=== PATIENT | female | born 1960 | race Caucasian/White ===

== ENCOUNTER 2019-01-14 16:14 | Outpatient (CLI) | payer OTHER ==
--- NOTE | 2019-01-14 17:13 | RAD ---
TWO VIEWS OF THE LEFT HIP 01/14/19 COMPARISON: None. HISTORY: Left hip pain. FINDINGS: Two views of the left hip shows no evidence of acute fracture or dislocation. No degenerative changes are seen. IMPRESSION: Unremarkable exam. POS: [facility]
--- NOTE | 2019-01-14 17:24 | RAD ---
Exam: Bilateral SI joints: HISTORY: Pain in SI joints and left hip pain FINDINGS: No evidence for acute fracture or dislocation. No evidence for periarticular bony erosive changes or significant abnormal sclerosis or ankylosis. IMPRESSION: Unremarkable bilateral SI joints.
== END 2019-01-14 16:15 | disposition home or self-care (01) ==
LOC: BICRAD 16:14
PROVIDERS: ATTEND Internal Medicine
DX: M25.552 Pain in left hip (principal); M53.3 Sacrococcygeal disorders, not elsewhere classified
CPT/HCPCS: 72202

== ENCOUNTER 2019-01-24 11:07 | Outpatient (CLI) | payer OTHER ==
--- NOTE | 2019-01-30 14:28 | MMO ---
Bilateral MAMMO Bilat Screen [facility]. CLINICAL HISTORY: Patient is 58 years old and is seen for screening. The patient has no family history of breast cancer. The patient has no personal history of cancer. The patient has a history of bilateral Breast reduction in 1998. VIEWS: The views performed were: bilateral craniocaudal with tomosynthesis and bilateral mediolateral oblique with tomosynthesis. FILMS COMPARED: The present examination has been compared to prior imaging studies performed at 09/07/2014, 09/20/2015 and 09/21/2016. MAMMOGRAM FINDINGS: There are scattered fibroglandular densities. There are stable benign appearing calcifications seen in both breasts. There are no suspicious masses, suspicious calcifications, or new areas of architectural distortion. IMPRESSION: THERE IS NO MAMMOGRAPHIC EVIDENCE OF MALIGNANCY. A ROUTINE FOLLOW-UP MAMMOGRAM IN 1 YEAR IS RECOMMENDED. THE RESULTS OF THIS EXAM WERE SENT TO THE PATIENT. ACR BI-RADS Category 2 - Benign finding MAMMOGRAPHY NOTE: 1. A negative mammogram report should not delay a biopsy if a dominant of clinically suspicious mass is present. 2. Approximately 10% to 15% of breast cancers are not detected by mammography. 3. Adenosis and dense breasts may obscure an underlying neoplasm.
== END 2019-01-24 11:08 | disposition home or self-care (01) ==
LOC: BICMAMMO 11:07
PROVIDERS: ATTEND Internal Medicine
DX: Z12.31 Encounter for screening mammogram for malignant neoplasm of breast (principal)
CPT/HCPCS: 77063; 77067

== ENCOUNTER 2019-01-27 08:06 | Outpatient (CLI) | payer OTHER ==
--- NOTE | 2019-01-27 10:06 | BD ---
DEXA SCAN: INDICATION: Osteoporosis screening. COMPARISON: None. FINDINGS: Lumbar Spine: BMD (g/cm2) L1 1.005 T-Score: 0.1 Z-Score: 1.3 L2 1.056 T-Score: 0.3 Z=Score: 1.5 L3 1.148 T-Score: 0.6 Z-Score: 0.9 L4 0.911 T-Score: -1.4 Z-Score: 0.0 L1-L4 1.032 T-Score: -0.1 Z-Score: 1.2 Right Hip Femoral Neck: 0.761 T-Score: -0.8 Z-Score: 0.4 Total Femur: 0.902 T-Score: -0.3 Z-Score: 0.5 Impression: Based on WHO criteria, the patient's bone mineral density is considered within normal limits. The pa tient is at low risk for fracture. POS: [facility]
== END 2019-01-27 08:07 | disposition home or self-care (01) ==
LOC: BICMAMMO 08:06
PROVIDERS: ATTEND Internal Medicine
DX: Z13.820 Encounter for screening for osteoporosis (principal)
CPT/HCPCS: 77080

== ENCOUNTER 2019-08-18 07:42 | Outpatient (CLI) | payer OTHER ==
--- NOTE | 2019-08-18 11:13 | ULT ---
HEPATIC ULTRASOUND WITH DOPPLER: Date: 08/18/19 HISTORY: Cirrhosis of the liver. FINDINGS: The liver has a coarse echogenicity with nodular borders consistent with cirrhosis. No focal mass or intrahepatic ductal dilatation is seen. No gallstones, gallbladder wall thickening, or pericholecysti c fluid identified. The common duct measures 3 mm in diameter. The spleen is enlarged, measuring 15.7 cm in length. The visualized portions of the pancreas are unremarkable. No free fluid is seen. There is normal and spectral waveforms in the hepatic, portal, and splenic vasculature. IMPRESSION: 1. Cirrhosis of the liver without focal mass. 2. Splenomegaly. POS: [facility]
== END 2019-08-18 07:43 | disposition home or self-care (01) ==
LOC: ULT 07:42
PROVIDERS: ATTEND Internal Medicine Gastroenterology
DX: K74.60 Unspecified cirrhosis of liver (principal); K76.0 Fatty (change of) liver, not elsewhere classified; K21.9 Gastro-esophageal reflux disease without esophagitis; E78.5 Hyperlipidemia, unspecified; R16.1 Splenomegaly, not elsewhere classified
CPT/HCPCS: 76705

== ENCOUNTER 2020-01-08 09:06 | Outpatient (CLI) | payer OTHER ==
--- NOTE | 2020-01-08 09:53 | MMO ---
Bilateral MAMMO Bilat Diag [facility]. CLINICAL HISTORY: Patient is 59 years old and is seen for diagnostic exam and lump or thickening in the right breast. The patient has no family history of breast cancer. The patient has no personal history of cancer. The patient has a history of bilateral Breast reduction in 1998. VIEWS: The views performed were: bilateral craniocaudal with tomosynthesis; bilateral mediolateral oblique with tomosynthesis; and bilateral mediolateral with tomosynthesis. FILMS COMPARED: The present examination has been compared to prior imaging studies performed at 01/24/2019 and 01/08/2020. This study has been interpreted with the assistance of computer-aided detection. MAMMOGRAM FINDINGS: There are scattered fibroglandular densities. There is a mass with circumscribed margins seen in the upper-inner region of the right breast. The mass was shown to be a cyst on ultrasound with a hyperechoic halo. On mammography, there appear to be areas of fat density within the mass. In the left breast, there are no suspicious masses, calcifications or areas of architectural distortion. IMPRESSION: MASS IN THE RIGHT BREAST IS PROBABLY BENIGN. FOLLOW-UP IN 3 MONTHS IS RECOMMENDED. THIS AREA LIKELY REPRESENT AN AREA OF RESORBING HEMATOMA AND FAT NECROSIS. THE RESULTS OF THIS EXAM WERE SENT TO THE PATIENT. ACR BI-RADS Category 3 - Probably benign finding - short interval follow-up suggested. [facility] will notify the patient of the need for additional imaging services. MAMMOGRAPHY NOTE: 1. A negative mammogram report should not delay a biopsy if a dominant of clinically suspicious mass is present. 2. Approximately 10% to 15% of breast cancers are not detected by mammography. 3. Adenosis and dense breasts may obscure an underlying neoplasm. Reported by: FILOMENA CHATMAN MD Electonically Signed: [id number]
--- NOTE | 2020-01-08 11:04 | ULT ---
RIGHT BREAST ULTRASOUND: Date: 01/08/2020 HISTORY: Tender palpable mass in right breast 2 o'clock position. COMPARISON: Mammograms 01/08/2020, 01/24/2019, and 11/30/2017. TECHNIQUE: Multiplanar Hodges scale and color Doppler images were obtained in a right breast ultrasound. FINDINGS: There is a hypoechoic fluid collection with a hyperechoic rim around the fluid collection. This measu res 1.7 cm in greatest dimension. No suspicious shadowing or mass is seen. IMPRESSION: There is a hypoechoic fluid collection. This may represent a resorbing hematoma. On mammography, ther e appears to be areas of fat within the lesion and this may represent hematoma within an area of fat necrosis. Patient denies trauma, but has a large dog that intermittently injures here. FINDINGS: BI-RADS Category 3 - Probably benign findings. A 3 month follow-up mammogram and ultrasound is recomm ended to ensure resolution. The facility will notify patient of need for additional imaging services.
== END 2020-01-08 09:07 | disposition home or self-care (01) ==
LOC: BICMAMMO 09:06
PROVIDERS: ATTEND Internal Medicine
DX: N63.12 Unspecified lump in the right breast, upper inner quadrant (principal)
CPT/HCPCS: 77066; G0279

== ENCOUNTER 2020-04-13 08:26 | Outpatient (CLI) | payer OTHER ==
--- NOTE | 2020-04-13 09:03 | MMO ---
Right Breast MAMMO Unilat Diag [facility]. CLINICAL HISTORY: Patient is 59 years old and is seen for diagnostic exam. The patient has no family history of breast cancer. The patient has no personal history of cancer. The patient has a history of bilateral Breast reduction in 1998. VIEWS: The views performed were: right craniocaudal with tomosynthesis; right mediolateral oblique with tomosynthesis; and right mediolateral with tomosynthesis. FILMS COMPARED: The present examination has been compared to prior imaging studies performed at [facility] on 01/24/2019, 01/08/2020 and 04/13/2020. This study has been interpreted with the assistance of computer-aided detection. MAMMOGRAM FINDINGS: There are scattered fibroglandular densities. The previously noted right breast mass has resolved. There are no suspicious masses, suspicious calcifications, or new areas of architectural distortion. IMPRESSION: THERE IS NO MAMMOGRAPHIC EVIDENCE OF MALIGNANCY. A ROUTINE FOLLOW-UP MAMMOGRAM IN 1 YEAR IS RECOMMENDED. THE RESULTS OF THIS EXAM WERE SENT TO THE PATIENT. ACR BI-RADS Category 2 - Benign finding MAMMOGRAPHY NOTE: 1. A negative mammogram report should not delay a biopsy if a dominant of clinically suspicious mass is present. 2. Approximately 10% to 15% of breast cancers are not detected by mammography. 3. Adenosis and dense breasts may obscure an underlying neoplasm. Reported by: EDMOND KEYS MD Electonically Signed: [id number]
--- NOTE | 2020-04-13 09:32 | ULT ---
LIMITED RIGHT BREAST ULTRASOUND: Date: 04/13/2020 HISTORY: Follow-up of right breast mass. FINDINGS: Comparison made with ultrasound of 01/08/2020. Correlation is made with mammogram from today and 06/2020. Sonographic evaluation of the 2 o'clock position of the right breast, 2.0 cm from the nipple, demonst rates interval resolution of the previously noted mass. IMPRESSION: BI-RADS Category 2 - Benign findings. Return to annual mammographic screening.
== END 2020-04-13 08:27 | disposition home or self-care (01) ==
LOC: BICMAMMO 08:26
PROVIDERS: ATTEND Internal Medicine
DX: N63.10 Unspecified lump in the right breast, unspecified quadrant (principal)
CPT/HCPCS: G0279

== ENCOUNTER 2020-10-13 08:36 | Outpatient (CLI) | payer OTHER ==
--- NOTE | 2020-10-13 09:43 | ULT ---
ULTRASOUND LIVER WITH ROSARIO SCALE AND COLOR FLOW AND SPECTRAL DOPPLER IMAGING: HISTORY: Cirrhosis of the liver without ascites. Fatty liver. Rectal bleeding. Gastroesophageal reflux dise ase without esophagitis. Personal history of colon polyps. COMPARISON: 08/18/2019. FINDINGS: The liver is enlarged measuring 21.2 cm in length with a coarse and increased echogenicity and irregu lar/nodular borders. No focal mass or abnormal biliary ductal dilatation is seen. The gallbladder, spleen, and pancreas appear normal. The gallbladder and pancreas appear normal. The spleen is enlar ged measuring 18.2 cm. No free fluid is noted. There is normal flow and spectral waveforms in the hepatic, portal, and splenic vasculature. IMPRESSION: 1. Hepatomegaly with fatty infiltration and probable cirrhosis. No hepatic mass. 2. Splenomegaly. POS: [facility]
== END 2020-10-13 08:37 | disposition home or self-care (01) ==
LOC: BICULT 08:36
PROVIDERS: ATTEND Internal Medicine Gastroenterology
DX: K21.9 Gastro-esophageal reflux disease without esophagitis (principal); K74.60 Unspecified cirrhosis of liver; K76.0 Fatty (change of) liver, not elsewhere classified; K62.5 Hemorrhage of anus and rectum; R16.2 Hepatomegaly with splenomegaly, not elsewhere classified; Z86.010 Personal history of colon polyps
CPT/HCPCS: 76705

== ENCOUNTER 2020-11-01 06:33 | Outpatient (CLI) | payer OTHER ==
[2020-11-01 16:19] LABS: SARS-CoV-2 PCR by NAA Not Detected (NotDetected)
== END 2020-11-01 06:34 | disposition home or self-care (01) ==
LOC: LABBT 06:33
PROVIDERS: ATTEND Internal Medicine Gastroenterology
DX: Z01.812 Encounter for preprocedural laboratory examination (principal); Z20.822 Contact with and (suspected) exposure to COVID-19
CPT/HCPCS: 87635; U0003; U0005

== ENCOUNTER 2020-11-04 11:51 | Day surgery (SDC) | payer OTHER ==
[2020-11-02 11:56] VITALS: BMI 29.1
[~2020-11-04 11:51] MED LIST: Lidocaine 1% PF 5 ML VIAL ONE; PROPOFOL 200 MG/20 ML VIAL ONE
[2020-11-04 15:16] LABS: Hemoglobin 10.9 g/dL (12.0-16.0); Mean Corpuscular HGB CONC 31.3 g/dL (32.0-36.0); Mean Corpuscular Hemoglobin 27.8 pg (27.0-31.0); Mean Corpuscular Volume 88.9 fL (78.0-98.0); Mean Platelet Volume 9.5 fL (7.4-10.4); Platelet Count 74 thou/uL (130-400); RBC Distribution Width 20.5 % (11.5-14.5); Red Blood Cell (RBC) Count 3.92 mill/uL (4.20-5.40); White Blood Cell (WBC) Count 4.2 thou/uL (4.8-10.8)
--- NOTE | 2020-11-04 20:44 | OP ---
DATE OF PROCEDURE: 11/04/2020 TITLE OF PROCEDURE: EGD with biopsy and variceal banding. PREPROCEDURE DIAGNOSES: 1. Cirrhosis. 2. History of esophageal varices. 3. History of portal gastropathy. POSTPROCEDURE DIAGNOSES: 1. Exam to 2nd portion of duodenum. 2. Three columns of grade 2 distal esophageal varices extending for a distance of approximately 11 cm in the lower esophagus. 3. Mild grade A distal esophagitis, not biopsied. 4. Small sliding hiatal hernia. 5. Numerous benign-appearing gastric polyps in the antrum, biopsied. 6. Changes of the entire stomach consistent with mild portal gastropathy. 7. Normal duodenum. 8. Status post successful banding of three columns of esophageal varices. PROCEDURE IN DETAIL: Written informed consent was obtained. The patient was brought to the endoscopy suite. Total intravenous anesthesia was administered by Dr. Beltrán and associates. The patient was placed in the left lateral decubitus position. A bite block was inserted into the mouth. A Pentax video diagnostic gastroscope was introduced into the oral cavity and the esophagus was carefully intubated. The gastroscope was advanced under direct visualization to the 2nd portion of the duodenum. Endoscopic findings revealed three columns of grade 2 distal esophageal varices extending for approximately 10 to 11 cm in the lower esophagus. Mild grade A distal esophagitis was identified associated with 1 cm sliding hiatal hernia. Examination of the stomach including a retroflexed view of the cardia and fundus revealed no gastric varices. However, a snake skin like appearance of the gastric mucosa was consistent with diagnosis of mild portal gastropathy. Multiple benign-appearing sessile polyps in a linear distribution were noted in the gastric antrum and biopsies were obtained for histology. Some acid hematin was associated with the gastric polyps, but there was no overt bleeding or ulceration. Examination of the duodenum from the bulb to the 2nd portion appeared normal. Using [employer] banding kit, 3 bands were placed on the 3 different columns of esophageal varices each about 1 cm apart along the length of the distal esophagus. There was no active bleeding at the conclusion of the banding, and the esophagus was completely decompressed as the endoscope was removed from the patient. She was repositioned for the sigmoidoscopy. There were no immediate complications. RECOMMENDATIONS: 1. Await biopsy results. 2. Ask the patient to call me in 1 week for biopsy results. 3. Resume previous medications. 4. Advise liquids and soft diet for the next 3 days. 5. Continue beta-barbara therapy. 6. Continue famotidine 40 mg at bedtime, may increase to 40 mg b.i.d. for the next 2 weeks. 7. Repeat EGD with variceal banding in about 6 weeks. Job ID: [id number]
--- NOTE | 2020-11-04 21:11 | OP ---
DATE OF PROCEDURE: 11/04/2020 TITLE OF PROCEDURE: Flexible sigmoidoscopy with biopsy. PRE PROCEDURE DIAGNOSES: 1. Recurrent hematochezia. 2. Known history of hemorrhoids. 3. History of adenomatous colon polyps with last colonoscopy 2018. 4. Cirrhosis. POST PROCEDURE DIAGNOSES: 1. Exam to mid to proximal sigmoid colon at 35 cm; suboptimal preparation. 2. Diminutive sigmoid polyp approximately 2 mm in diameter, excised with cold forceps. 3. Several hypertrophied anal papilla. 4. Nonbleeding small internal hemorrhoids. 5. Otherwise normal sigmoidoscopy. PROCEDURE IN DETAILS: Written informed consent was obtained. Upon completion of the EGD, the patient was repositioned for the sigmoidoscopy. A digital rectal exam was performed that was unremarkable. The Pentax video gastroscope was introduced into the anal canal and advanced under direct visualization to the mid to proximal sigmoid colon at 35 cm. The quality of the bowel preparation was suboptimal with a moderate amount of brown fecal liquid and some solid matter pooling in multiple areas of the colon. Using copious irrigation, most of the mucosa was rinsed away with resulting fair to good visualization. In the distal sigmoid colon, a 2 mm sessile polyp was identified and excised with cold biopsy forceps. No other synchronous polyps were identified. There is no evidence of colitis, ulcer or active bleeding. A retroflex exam in the rectum demonstrated several hypertrophied anal papilla and nonbleeding small internal hemorrhoids. There was no evidence of thrombosis. The rectum was decompressed as the endoscope was completely removed from the patient. She was transferred to the Day Stay Surgery area for postprocedure monitoring. There were no immediate complications. RECOMMENDATIONS: 1. Await biopsy results. 2. Anticipate repeating a colonoscopy in 2022 as previously planned. 3. Sitz baths for 5 to 10 minutes three times a day. 4. Analpram HC 2.5% cream t.i.d. per rectum as needed or hydrocortisone 25 mg rectal suppositories one daily as needed. 5. Cleanse area gently with very mild soapy solution and warm water. 6. Followup with me as needed for the hemorrhoids. Otherwise, follow up in the clinic in three months. Job ID: [id number]
== END 2020-11-04 15:10 | disposition home or self-care (01) ==
LOC: SDC 11:51
PROVIDERS: ATTEND Internal Medicine Gastroenterology
PROC: 0DBN8ZX Excision of Sigmoid Colon, Via Natural or Artificial Opening Endoscopic, Diagnostic (ICD-10-PCS; principal; 2020-11-04)
PROC: 06L38CZ Occlusion of Esophageal Vein with Extraluminal Device, Via Natural or Artificial Opening Endoscopic (ICD-10-PCS; 2020-11-04)
PROC: 0DB58ZX Excision of Esophagus, Via Natural or Artificial Opening Endoscopic, Diagnostic (ICD-10-PCS; 2020-11-04)
DX: K63.5 Polyp of colon (principal); K64.8 Other hemorrhoids; K62.89 Other specified diseases of anus and rectum; K21.9 Gastro-esophageal reflux disease without esophagitis; K31.7 Polyp of stomach and duodenum; K76.0 Fatty (change of) liver, not elsewhere classified; K44.9 Diaphragmatic hernia without obstruction or gangrene; K74.60 Unspecified cirrhosis of liver; K76.6 Portal hypertension; K31.89 Other diseases of stomach and duodenum; I85.10 Secondary esophageal varices without bleeding; K21.00 Gastro-esophageal reflux disease with esophagitis, without bleeding; M19.90 Unspecified osteoarthritis, unspecified site; D89.89 Other specified disorders involving the immune mechanism, not elsewhere classified; I10 Essential (primary) hypertension; E78.5 Hyperlipidemia, unspecified; G43.909 Migraine, unspecified, not intractable, without status migrainosus; E03.9 Hypothyroidism, unspecified; E78.00 Pure hypercholesterolemia, unspecified; Z79.899 Other long term (current) drug therapy; Z86.010 Personal history of colon polyps; Z88.6 Allergy status to analgesic agent
CPT/HCPCS: 36415; 85027; 88305; J2704

== ENCOUNTER 2020-12-06 08:12 | Outpatient (CLI) | payer OTHER ==
[2020-12-06 17:25] LABS: SARS-CoV-2 PCR by NAA Not Detected (NotDetected)
== END 2020-12-06 08:13 | disposition home or self-care (01) ==
LOC: LABBT 08:12
PROVIDERS: ATTEND Internal Medicine Gastroenterology
DX: Z01.812 Encounter for preprocedural laboratory examination (principal); I85.00 Esophageal varices without bleeding; Z20.822 Contact with and (suspected) exposure to COVID-19
CPT/HCPCS: 87635; U0003; U0005

== ENCOUNTER 2020-12-09 11:34 | Day surgery (SDC) | payer OTHER ==
[2020-12-08 13:47] VITALS: BMI 29.1
[2020-12-09] MEDS ORDERED: PROPOFOL 200 MG/20 ML VIAL ONE (13:34)
== END 2020-12-09 14:45 | disposition home or self-care (01) ==
LOC: SDC 11:34
PROVIDERS: ATTEND Internal Medicine Gastroenterology
PROC: 06L38CZ Occlusion of Esophageal Vein with Extraluminal Device, Via Natural or Artificial Opening Endoscopic (ICD-10-PCS; principal; 2020-12-09)
DX: K74.60 Unspecified cirrhosis of liver (principal); I85.10 Secondary esophageal varices without bleeding; K31.89 Other diseases of stomach and duodenum; K44.9 Diaphragmatic hernia without obstruction or gangrene; Z79.899 Other long term (current) drug therapy; Z88.6 Allergy status to analgesic agent
CPT/HCPCS: J2704

== ENCOUNTER 2021-03-22 08:02 | Outpatient (CLI) | payer OTHER | END 2021-03-22 08:03 | disposition home or self-care (01) | LOC: BICMAMMO 08:02 | PROVIDERS: ATTEND Internal Medicine | DX: Z12.31 Encounter for screening mammogram for malignant neoplasm of breast (principal); Z98.890 Other specified postprocedural states | CPT/HCPCS: 77063; 77067 ==

== ENCOUNTER 2021-07-08 08:04 | Outpatient (CLI) | payer OTHER ==
[2021-07-08] MEDS ORDERED: Iopamidol 370 76% 100 ML VIAL ONE (11:57)
== END 2021-07-08 08:05 | disposition home or self-care (01) ==
LOC: CT 08:04
PROVIDERS: ATTEND Physician Assistant Medical
DX: K74.60 Unspecified cirrhosis of liver (principal); K21.9 Gastro-esophageal reflux disease without esophagitis; R16.1 Splenomegaly, not elsewhere classified; K76.6 Portal hypertension; R18.8 Other ascites; K22.89 Other specified disease of esophagus; I86.8 Varicose veins of other specified sites; K40.90 Unilateral inguinal hernia, without obstruction or gangrene, not specified as recurrent
CPT/HCPCS: 74177; Q9967

== ENCOUNTER 2021-07-13 09:49 | Day surgery (SDC) | payer OTHER ==
[2021-07-13 10:05] LABS: #Eosinphils 0.1 thou/uL (0.0-0.7); #Lymphocytes 0.4 thou/uL (1.20-3.40); #Monocytes 0.6 thou/uL (0.11-0.59); #Neutrophils 3.7 thou/uL (1.40-6.50); %Basophils 0.3 % (0.0-1.0); %Eosinophils 1.5 % (0.0-10.0); %Lymphocytes 8.1 % (21.0-51.0); %Monocytes 12.2 % (0.0-10.0); %Neutrophils 77.9 % (42.0-75.0); Hemoglobin 12.2 g/dL (12.0-16.0); Mean Corpuscular HGB CONC 32.9 g/dL (32.0-36.0); Mean Corpuscular Hemoglobin 28.5 pg (27.0-31.0); Mean Corpuscular Volume 86.6 fL (78.0-98.0); Mean Platelet Volume 7.9 fL (7.4-10.4); Platelet Count 114 thou/uL (130-400); RBC Distribution Width 14.5 % (11.5-14.5); Red Blood Cell (RBC) Count 4.26 mill/uL (4.20-5.40); White Blood Cell (WBC) Count 4.7 thou/uL (4.8-10.8)
[2021-07-13] MEDS ORDERED: Lidocaine 1% PF 5 ML VIAL ONE (10:07)
[2021-07-13] MEDS ORDERED: Sodium Chloride 0.9% 10 ML ONE (10:07)
[2021-07-13] MEDS ORDERED: Sodium Bicarbonate 2.5 MEQ/5 ML VIAL ONE (10:07)
[2021-07-13] MEDS ORDERED: Albumin 25% 100 ML ONE (10:07)
[2021-07-13 10:19] LABS: INR-International Normal Ratio 1.3; Prothrombin Time 16.8 sec (12.0-14.7)
[2021-07-13 11:25] VITALS: TEMP 98.3
[2021-07-13 11:28] VITALS: BP 114/61
[2021-07-13 13:06] LABS: RBC Count-Automated (BF) 11297 /cu.mm; WBC/Nucleated-Auto (BF) 415 uL
[2021-07-13 13:18] LABS: BF Color Yellow; Body Fluid Source Ascites Body Fluid; Clarity Hazy (Clear); Tube # EDTA
[2021-07-13 13:20] LABS: BF Segmented Neutrophils 6 %; Cell Count Non Hematic 80 %; Lymphocytes 14 %
== END 2021-07-13 11:29 | disposition home or self-care (01) ==
LOC: ULT 09:49
PROC: 0W9G3ZX Drainage of Peritoneal Cavity, Percutaneous Approach, Diagnostic (ICD-10-PCS; principal; 2021-07-13)
DX: K74.60 Unspecified cirrhosis of liver (principal); R18.8 Other ascites; K21.9 Gastro-esophageal reflux disease without esophagitis; M19.90 Unspecified osteoarthritis, unspecified site; M35.9 Systemic involvement of connective tissue, unspecified; K76.0 Fatty (change of) liver, not elsewhere classified; I10 Essential (primary) hypertension; E78.00 Pure hypercholesterolemia, unspecified; L40.50 Arthropathic psoriasis, unspecified; Z88.6 Allergy status to analgesic agent
CPT/HCPCS: 36415; 49083; 85025; 85060; 85610; 85730; 87070; 87205; 88112; 88305; 89051; P9047

== ENCOUNTER 2021-07-27 10:39 | Day surgery (SDC) | payer OTHER ==
[2021-07-26 12:07] VITALS: BMI 64.2
[2021-07-27] MEDS ORDERED: Albumin 25% 100 ML ONE (11:04)
[2021-07-27] MEDS ORDERED: Lidocaine 1% PF 5 ML VIAL ONE (11:04)
[2021-07-27] MEDS ORDERED: Sodium Bicarbonate 2.5 MEQ/5 ML VIAL ONE (11:04)
[2021-07-27 11:45] VITALS: TEMP 98.3
[2021-07-27 12:18] VITALS: BP 116/56
== END 2021-07-27 12:22 | disposition home or self-care (01) ==
LOC: ULT 10:39
PROVIDERS: ATTEND Internal Medicine Gastroenterology
PROC: 0W9G3ZZ Drainage of Peritoneal Cavity, Percutaneous Approach (ICD-10-PCS; principal; 2021-07-27)
DX: K74.60 Unspecified cirrhosis of liver (principal); R18.8 Other ascites; K76.0 Fatty (change of) liver, not elsewhere classified; K21.9 Gastro-esophageal reflux disease without esophagitis; M19.90 Unspecified osteoarthritis, unspecified site; M35.9 Systemic involvement of connective tissue, unspecified; E78.00 Pure hypercholesterolemia, unspecified; L40.50 Arthropathic psoriasis, unspecified; R03.0 Elevated blood-pressure reading, without diagnosis of hypertension; Z88.6 Allergy status to analgesic agent; Z79.899 Other long term (current) drug therapy
CPT/HCPCS: 49083; P9047

== ENCOUNTER 2021-08-09 14:05 | Day surgery (SDC) | payer OTHER ==
[2021-08-08 11:35] VITALS: BMI 32.3
[2021-08-09] MEDS ORDERED: Lidocaine 1% PF 5 ML VIAL ONE (14:07)
[2021-08-09] MEDS ORDERED: Sodium Bicarbonate 2.5 MEQ/5 ML VIAL ONE (14:07)
[2021-08-09 15:10] VITALS: BP 121/60; TEMP 98.5
== END 2021-08-09 15:00 | disposition home or self-care (01) ==
LOC: ULT 14:05
PROVIDERS: ATTEND Internal Medicine Gastroenterology
PROC: 0W9G3ZZ Drainage of Peritoneal Cavity, Percutaneous Approach (ICD-10-PCS; principal; 2021-08-09)
DX: R18.8 Other ascites (principal); Z88.6 Allergy status to analgesic agent
CPT/HCPCS: 49083

== ENCOUNTER 2021-08-15 08:37 | Outpatient (CLI) | payer OTHER ==
[2021-08-15 17:36] LABS: SARS-CoV-2 PCR by NAA Not Detected (NotDetected)
== END 2021-08-15 08:38 | disposition home or self-care (01) ==
LOC: LABBT 08:37
PROVIDERS: ATTEND Internal Medicine Gastroenterology
DX: Z01.812 Encounter for preprocedural laboratory examination (principal); R18.8 Other ascites; Z20.822 Contact with and (suspected) exposure to COVID-19
CPT/HCPCS: U0003; U0005

== ENCOUNTER 2021-08-18 11:47 | Day surgery (SDC) | payer OTHER ==
[2021-08-17 14:12] VITALS: BMI 28.4
[2021-08-18] MEDS ORDERED: Fentanyl 100 MCG/2 ML VIAL ONE (12:38)
== END 2021-08-18 16:20 | disposition home or self-care (01) ==
LOC: SDC 11:47
PROVIDERS: ATTEND Internal Medicine Gastroenterology
DX: K74.60 Unspecified cirrhosis of liver (principal); I85.10 Secondary esophageal varices without bleeding; K31.819 Angiodysplasia of stomach and duodenum without bleeding; K31.89 Other diseases of stomach and duodenum; K44.9 Diaphragmatic hernia without obstruction or gangrene; K21.9 Gastro-esophageal reflux disease without esophagitis; Z88.6 Allergy status to analgesic agent; Z79.899 Other long term (current) drug therapy
CPT/HCPCS: 88305; J3010

== ENCOUNTER 2021-08-24 12:31 | Day surgery (SDC) | payer OTHER ==
[2021-08-24 10:30] LABS: #Eosinphils 0.1 thou/uL (0.0-0.7); #Lymphocytes 0.4 thou/uL (1.20-3.40); #Monocytes 0.5 thou/uL (0.11-0.59); %Basophils 0.1 % (0.0-1.0); %Eosinophils 1.7 % (0.0-10.0); %Lymphocytes 8.1 % (21.0-51.0); %Monocytes 10.8 % (0.0-10.0); %Neutrophils 79.2 % (42.0-75.0); Mean Corpuscular HGB CONC 32.3 g/dL (32.0-36.0); Mean Corpuscular Hemoglobin 27.4 pg (27.0-31.0); Mean Corpuscular Volume 84.9 fL (78.0-98.0); Mean Platelet Volume 8.5 fL (7.4-10.4); Platelet Count 152 thou/uL (130-400); RBC Distribution Width 15.3 % (11.5-14.5); Red Blood Cell (RBC) Count 4.39 mill/uL (4.20-5.40)
[2021-08-24 10:36] LABS: INR-International Normal Ratio 1.3; PTT 38.6 sec (22.9-36.1); Prothrombin Time 16.1 sec (12.0-14.7)
[2021-08-24] MEDS ORDERED: Sodium Bicarbonate 2.5 MEQ/5 ML VIAL ONE (12:33)
[2021-08-24] MEDS ORDERED: Lidocaine 1% PF 5 ML VIAL ONE (12:33)
[2021-08-24] MEDS ORDERED: Albumin 25% 100 ML ONE (13:42)
[2021-08-24 14:22] VITALS: TEMP 97.9
[2021-08-24 14:26] VITALS: BP 99/45
== END 2021-08-24 14:04 | disposition home or self-care (01) ==
LOC: ULT 12:31
PROVIDERS: ATTEND Internal Medicine Gastroenterology
PROC: 0W9G3ZZ Drainage of Peritoneal Cavity, Percutaneous Approach (ICD-10-PCS; principal; 2021-08-24)
DX: K74.60 Unspecified cirrhosis of liver (principal); R18.8 Other ascites; K21.9 Gastro-esophageal reflux disease without esophagitis; I10 Essential (primary) hypertension; E78.00 Pure hypercholesterolemia, unspecified; L40.50 Arthropathic psoriasis, unspecified; Z88.6 Allergy status to analgesic agent
CPT/HCPCS: 49083; 85025; 85610; 85730; P9047

== ENCOUNTER 2021-09-08 10:32 | Day surgery (SDC) | payer OTHER ==
[2021-09-08] MEDS ORDERED: Lidocaine 1% PF 5 ML VIAL ONE (10:37)
[2021-09-08] MEDS ORDERED: Albumin 25% 100 ML ONE (10:37)
[2021-09-08] MEDS ORDERED: Sodium Bicarbonate 2.5 MEQ/5 ML VIAL ONE (10:37)
[2021-09-08] MEDS ORDERED: Sodium Chloride 0.9% 10 ML ONE (10:38)
[2021-09-08 12:53] VITALS: BMI 29.1
== END 2021-09-08 11:23 | disposition home or self-care (01) ==
LOC: ULT 10:32
PROVIDERS: ATTEND Internal Medicine Gastroenterology
PROC: 0W9G3ZZ Drainage of Peritoneal Cavity, Percutaneous Approach (ICD-10-PCS; principal; 2021-09-08)
DX: K74.60 Unspecified cirrhosis of liver (principal); R18.8 Other ascites; K21.9 Gastro-esophageal reflux disease without esophagitis; D89.89 Other specified disorders involving the immune mechanism, not elsewhere classified; I10 Essential (primary) hypertension; E78.00 Pure hypercholesterolemia, unspecified; L40.50 Arthropathic psoriasis, unspecified; Z79.899 Other long term (current) drug therapy; Z88.6 Allergy status to analgesic agent
CPT/HCPCS: 49083; P9047

== ENCOUNTER 2021-09-22 10:31 | Day surgery (SDC) | payer OTHER ==
[2021-09-21 12:34] VITALS: BMI 32.3
[2021-09-22] MEDS ORDERED: Albumin 25% 100 ML ONE ×2 (11:36→12:24)
[2021-09-22] MEDS ORDERED: Lidocaine 1% PF 5 ML VIAL ONE (11:36)
[2021-09-22 14:07] VITALS: BP 107/43
[2021-09-22] MEDS ORDERED: Albumin 25% 25 GM/100 ML BOT IVPB SCH ×2 (14:15→14:30)
== END 2021-09-22 12:50 | disposition home or self-care (01) ==
LOC: ULT 10:31
PROVIDERS: ATTEND Internal Medicine Gastroenterology
PROC: 0W9G3ZZ Drainage of Peritoneal Cavity, Percutaneous Approach (ICD-10-PCS; principal; 2021-09-22)
DX: K74.60 Unspecified cirrhosis of liver (principal); R18.8 Other ascites; K21.9 Gastro-esophageal reflux disease without esophagitis; M35.9 Systemic involvement of connective tissue, unspecified; I10 Essential (primary) hypertension; E78.00 Pure hypercholesterolemia, unspecified; L40.50 Arthropathic psoriasis, unspecified; Z88.6 Allergy status to analgesic agent
CPT/HCPCS: 49083; P9047

== ENCOUNTER → 2021-10-06 | Day surgery (SDC) | payer BC ==
[2021-10-05 15:19] VITALS: BMI 32.3
[~2021-10-06] MED LIST changes: +Albumin 25% 100 ML ONE; -PROPOFOL 200 MG/20 ML VIAL ONE; +Sodium Bicarbonate 2.5 MEQ/5 ML VIAL ONE; +Sodium Chloride 0.9% 10 ML ONE
[2021-10-06 10:30] LABS: #Lymphocytes 0.3 thou/uL (1.20-3.40); #Monocytes 0.5 thou/uL (0.11-0.59); #Neutrophils 5.1 thou/uL (1.40-6.50); %Basophils 0.2 % (0.0-1.0); %Eosinophils 0.1 % (0.0-10.0); %Lymphocytes 5.5 % (21.0-51.0); %Neutrophils 86.2 % (42.0-75.0); Hemoglobin 11.5 g/dL (12.0-16.0); Mean Corpuscular Hemoglobin 27.5 pg (27.0-31.0); Mean Corpuscular Volume 83.4 fL (78.0-98.0); Mean Platelet Volume 8.4 fL (7.4-10.4); Platelet Count 133 thou/uL (130-400); Red Blood Cell (RBC) Count 4.19 mill/uL (4.20-5.40); White Blood Cell (WBC) Count 5.9 thou/uL (4.8-10.8)
[2021-10-06 10:45] LABS: INR-International Normal Ratio 1.3; Prothrombin Time 16.7 sec (12.0-14.7)
[2021-10-06 10:46] LABS: PTT 41.2 sec (22.9-36.1)
== END ==
LOC: ULT 10:12
PROVIDERS: ATTEND Internal Medicine Gastroenterology
PROC: 0W9G3ZZ Drainage of Peritoneal Cavity, Percutaneous Approach (ICD-10-PCS; principal; 2021-10-06)
DX: K74.60 Unspecified cirrhosis of liver (principal); R18.8 Other ascites; Z88.6 Allergy status to analgesic agent
CPT/HCPCS: 49083; 85025; 85610; 85730; P9047

== ENCOUNTER 2021-10-20 10:46 | Day surgery (SDC) | payer BC ==
[2021-10-20 10:42] VITALS: BMI 32.3
[2021-10-20] MEDS ORDERED: Lidocaine 1% PF 5 ML VIAL ONE (10:56)
[2021-10-20] MEDS ORDERED: Albumin 25% 100 ML ONE (10:56)
[2021-10-20] MEDS ORDERED: Sodium Bicarbonate 2.5 MEQ/5 ML VIAL ONE (10:56)
[2021-10-20] MEDS ORDERED: Sodium Chloride 0.9% 10 ML ONE (10:56)
== END 2021-10-20 11:55 | disposition home or self-care (01) ==
LOC: ULT 10:46
PROVIDERS: ATTEND Internal Medicine Gastroenterology
PROC: 0W9G3ZZ Drainage of Peritoneal Cavity, Percutaneous Approach (ICD-10-PCS; principal; 2021-10-20)
DX: K74.60 Unspecified cirrhosis of liver (principal); R18.8 Other ascites; Z88.6 Allergy status to analgesic agent
CPT/HCPCS: 49083; P9047

== ENCOUNTER 2021-11-03 10:39 | Day surgery (SDC) | payer BC ==
[2021-11-01 14:56] VITALS: BMI 32.3
[2021-11-03] MEDS ORDERED: Sodium Bicarbonate 2.5 MEQ/5 ML VIAL ONE (10:51)
[2021-11-03] MEDS ORDERED: Lidocaine 1% PF 5 ML VIAL ONE (10:51)
[2021-11-03] MEDS ORDERED: Sodium Chloride 0.9% 10 ML ONE (10:51)
[2021-11-03] MEDS ORDERED: Sodium Chloride 0.9% 20 ML ONE (11:10)
[2021-11-03 13:50] VITALS: BP 111/50
[2021-11-03] MEDS ORDERED: FLU VACC QS2021-22(6MOS UP)/PF 60 MCG/0.5 ML SYRINGE IM ONE (14:00)
== END 2021-11-03 12:24 | disposition home or self-care (01) ==
LOC: ULT 10:39
PROVIDERS: ATTEND Internal Medicine Gastroenterology
PROC: 0W9G3ZZ Drainage of Peritoneal Cavity, Percutaneous Approach (ICD-10-PCS; principal; 2021-11-03)
DX: R18.8 Other ascites (principal); Z79.899 Other long term (current) drug therapy; Z88.6 Allergy status to analgesic agent
CPT/HCPCS: 49083

== ENCOUNTER 2021-11-17 10:44 | Day surgery (SDC) | payer BC ==
[2021-11-17] MEDS ORDERED: Sodium Bicarbonate 2.5 MEQ/5 ML VIAL ONE (10:48)
[2021-11-17] MEDS ORDERED: Lidocaine 1% PF 5 ML VIAL ONE (10:48)
[2021-11-17] MEDS ORDERED: Albumin 25% 100 ML ONE (10:48)
[2021-11-17 12:14] VITALS: BP 118/59; TEMP 98.1
== END 2021-11-17 12:05 | disposition home or self-care (01) ==
LOC: ULT 10:44
PROVIDERS: ATTEND Internal Medicine Gastroenterology
PROC: 0W9G3ZZ Drainage of Peritoneal Cavity, Percutaneous Approach (ICD-10-PCS; principal; 2021-11-17)
DX: R18.8 Other ascites (principal); Z88.6 Allergy status to analgesic agent
CPT/HCPCS: 49083; P9047

== ENCOUNTER 2021-12-01 10:32 | Day surgery (SDC) | payer BC ==
[2021-11-29 12:31] VITALS: BMI 32.3
[2021-12-01] MEDS ORDERED: Sodium Bicarbonate 2.5 MEQ/5 ML VIAL ONE (10:43)
[2021-12-01] MEDS ORDERED: Albumin 25% 100 ML ONE (10:43)
[2021-12-01] MEDS ORDERED: Lidocaine 1% PF 5 ML VIAL ONE (10:43)
[2021-12-01] MEDS ORDERED: Albumin 25% 25 GM/100 ML BOT IVPB SCH (11:15)
[2021-12-01 12:02] VITALS: BP 106/43
== END 2021-12-01 11:50 | disposition home or self-care (01) ==
LOC: ULT 10:32
PROVIDERS: ATTEND Internal Medicine Gastroenterology
PROC: 0W9G3ZZ Drainage of Peritoneal Cavity, Percutaneous Approach (ICD-10-PCS; principal; 2021-12-01)
DX: R18.8 Other ascites (principal); Z88.6 Allergy status to analgesic agent
CPT/HCPCS: 49083; P9047

== ENCOUNTER → 2022-01-19 | Day surgery (SDC) | payer BC ==
[2022-01-18 13:36] VITALS: BMI 32.3
[~2022-01-19] MED LIST changes: -Albumin 25% 100 ML ONE; +Albumin 25% 200 ML ONE; -Sodium Chloride 0.9% 10 ML ONE
== END | disposition home or self-care (01) ==
LOC: ULT 13:02
PROVIDERS: ATTEND Internal Medicine Gastroenterology
PROC: 0W9G3ZZ Drainage of Peritoneal Cavity, Percutaneous Approach (ICD-10-PCS; principal; 2022-01-19)
DX: R18.8 Other ascites (principal); Z88.6 Allergy status to analgesic agent
CPT/HCPCS: 49083; P9047

== ENCOUNTER 2022-01-26 10:44 | Day surgery (SDC) | payer BC ==
[2022-01-24 12:10] VITALS: BMI 32.3
[2022-01-26] MEDS ORDERED: Sodium Bicarbonate 2.5 MEQ/5 ML VIAL ONE (11:16)
[2022-01-26] MEDS ORDERED: Albumin 25% 200 ML ONE (11:16)
[2022-01-26] MEDS ORDERED: Lidocaine 1% PF 5 ML VIAL ONE (11:16)
[2022-01-26 11:59] VITALS: BP 107/38; TEMP 98.2
== END 2022-01-26 11:52 | disposition home or self-care (01) ==
LOC: ULT 10:44
PROVIDERS: ATTEND Internal Medicine Gastroenterology
PROC: 0W9G3ZZ Drainage of Peritoneal Cavity, Percutaneous Approach (ICD-10-PCS; principal; 2022-01-26)
DX: K74.60 Unspecified cirrhosis of liver (principal); R18.8 Other ascites; Z88.6 Allergy status to analgesic agent
CPT/HCPCS: 49083; 76700; P9047

== ENCOUNTER 2022-01-30 08:39 | Outpatient (CLI) | payer BC ==
[2022-01-30 23:01] LABS: SARS-CoV-2 PCR by NAA Not Detected (NotDetected)
== END 2022-01-30 08:40 | disposition home or self-care (01) ==
LOC: LABBT 08:39
PROVIDERS: ATTEND Internal Medicine Gastroenterology
DX: K74.60 Unspecified cirrhosis of liver (principal); Z20.822 Contact with and (suspected) exposure to COVID-19
CPT/HCPCS: U0003; U0005

== ENCOUNTER 2022-02-01 12:43 | Day surgery (SDC) | payer BC ==
[2022-01-31 08:12] VITALS: BMI 32.3
[2022-02-01] MEDS ORDERED: Albumin 25% 200 ML ONE (12:52)
[2022-02-01] MEDS ORDERED: Sodium Bicarbonate 2.5 MEQ/5 ML VIAL ONE (12:52)
[2022-02-01] MEDS ORDERED: Lidocaine 1% PF 5 ML VIAL ONE ×2 (12:52→13:19)
[2022-02-01 16:15] VITALS: BP 129/48; TEMP 98
== END 2022-02-01 14:02 | disposition home or self-care (01) ==
LOC: ULT 12:43
PROVIDERS: ATTEND Internal Medicine Gastroenterology
PROC: 0W9G3ZZ Drainage of Peritoneal Cavity, Percutaneous Approach (ICD-10-PCS; principal; 2022-02-01)
DX: K74.60 Unspecified cirrhosis of liver (principal); R18.8 Other ascites; Z79.890 Hormone replacement therapy; Z79.899 Other long term (current) drug therapy; Z88.6 Allergy status to analgesic agent
CPT/HCPCS: 49083; P9047

== ENCOUNTER 2022-02-02 11:18 | Day surgery (SDC) | payer BC ==
[2022-01-31 12:41] VITALS: BMI 25.7
[2022-02-02] MEDS ORDERED: Fentanyl 100 MCG/2 ML VIAL ONE (13:12)
[2022-02-02] MEDS ORDERED: PHENYLEPHRINE-NS 100 MCG/ML 10 ML SYRINGE ONE (13:16)
[2022-02-02] MEDS ORDERED: PROPOFOL 200 MG/20 ML VIAL ONE (13:16)
[2022-02-02] MEDS ORDERED: Lidocaine 1% PF 5 ML VIAL ONE (13:16)
[2022-02-02] MEDS ORDERED: Sodium Chloride 0.9% 100 ML ONE (14:00)
[2022-02-02] MEDS ORDERED: CEFAZOLIN 1 GM VIAL ONE (14:00)
== END 2022-02-02 14:45 | disposition home or self-care (01) ==
LOC: SDC 11:18
PROVIDERS: ATTEND Internal Medicine Gastroenterology
PROC: 06L38CZ Occlusion of Esophageal Vein with Extraluminal Device, Via Natural or Artificial Opening Endoscopic (ICD-10-PCS; principal; 2022-02-02)
DX: K74.60 Unspecified cirrhosis of liver (principal); I85.10 Secondary esophageal varices without bleeding; K31.89 Other diseases of stomach and duodenum; K72.90 Hepatic failure, unspecified without coma; Z79.890 Hormone replacement therapy; Z79.899 Other long term (current) drug therapy; Z88.6 Allergy status to analgesic agent
CPT/HCPCS: J0690; J2704; J3010; J3490

== ENCOUNTER 2022-02-09 10:01 | Day surgery (SDC) | payer BC ==
[2022-02-08 07:24] VITALS: BMI 32.3
[2022-02-09] MEDS ORDERED: Lidocaine 1% PF 5 ML VIAL ONE (10:14)
[2022-02-09] MEDS ORDERED: Albumin 25% 200 ML ONE (10:14)
[2022-02-09] MEDS ORDERED: Sodium Bicarbonate 2.5 MEQ/5 ML VIAL ONE (10:14)
[2022-02-09 12:23] VITALS: BP 99/43; TEMP 97.9
== END 2022-02-09 12:25 | disposition home or self-care (01) ==
LOC: ULT 10:01
PROVIDERS: ATTEND Internal Medicine Gastroenterology
PROC: 0W9G3ZZ Drainage of Peritoneal Cavity, Percutaneous Approach (ICD-10-PCS; principal; 2022-02-09)
DX: R18.8 Other ascites (principal); Z79.890 Hormone replacement therapy; Z79.899 Other long term (current) drug therapy; Z88.6 Allergy status to analgesic agent
CPT/HCPCS: 49083; P9047

== ENCOUNTER → 2022-02-16 | Day surgery (SDC) | payer BC ==
[2022-02-14 13:47] VITALS: BMI 32.3
== END | disposition home or self-care (01) ==
LOC: ULT 10:31
PROVIDERS: ATTEND Internal Medicine Gastroenterology
PROC: 0W9G3ZZ Drainage of Peritoneal Cavity, Percutaneous Approach (ICD-10-PCS; principal; 2022-02-16)
DX: K74.60 Unspecified cirrhosis of liver (principal); R18.8 Other ascites; Z88.6 Allergy status to analgesic agent
CPT/HCPCS: 49083; P9047

== ENCOUNTER 2022-02-22 13:40 | Day surgery (SDC) | payer BC ==
[2022-02-20 11:30] VITALS: BMI 32.3
[2022-02-22] MEDS ORDERED: Sodium Bicarbonate 2.5 MEQ/5 ML VIAL ONE (13:54)
[2022-02-22] MEDS ORDERED: Lidocaine 1% PF 5 ML VIAL ONE (13:54)
[2022-02-22 14:59] VITALS: BP 101/41; TEMP 97.9
== END 2022-02-22 15:09 | disposition home or self-care (01) ==
LOC: ULT 13:40
PROVIDERS: ATTEND Internal Medicine Gastroenterology
PROC: 0W9G3ZZ Drainage of Peritoneal Cavity, Percutaneous Approach (ICD-10-PCS; principal; 2022-02-22)
DX: K74.60 Unspecified cirrhosis of liver (principal); R18.8 Other ascites; I10 Essential (primary) hypertension; E78.00 Pure hypercholesterolemia, unspecified; L40.50 Arthropathic psoriasis, unspecified; Z79.890 Hormone replacement therapy; Z79.899 Other long term (current) drug therapy; Z88.6 Allergy status to analgesic agent
CPT/HCPCS: 49083

== ENCOUNTER 2022-03-16 09:11 | Day surgery (SDC) | payer BC ==
[2022-03-14 15:23] VITALS: BMI 32.3
[2022-03-16] MEDS ORDERED: Albumin 25% 200 ML ONE (10:38)
[2022-03-16] MEDS ORDERED: Lidocaine 1% PF 5 ML VIAL ONE (10:38)
[2022-03-16] MEDS ORDERED: Sodium Bicarbonate 2.5 MEQ/5 ML VIAL ONE (10:38)
[2022-03-16 11:41] LABS: Anisocytosis MODERATE=16-30 cells (100X) (0-5/hpf); Band 8 % (5-11); Large Platelets SLIGHT; Lymphocytes 21 % (21-51); MDiff Complete? YES; Mean Corpuscular Hemoglobin 26.5 pg (27.0-31.0); Mean Corpuscular Volume 75.6 fL (78.0-98.0); Mean Platelet Volume 12.8 fL (7.4-10.4); Monocytes 12 % (0-10); Neutrophil 58 % (42-75); Ovalocytes SLIGHT = 2-5 cells (100X) (0-1/hpf); Platelet Count 374 thou/uL (130-400); Platelet Morphology Comment Appears Adequate; RBC Distribution Width 25.7 % (11.5-14.5); Red Blood Cell (RBC) Count 3.03 mill/uL (4.20-5.40); White Blood Cell (WBC) Count 3.9 thou/uL (4.8-10.8)
[2022-03-16 11:43] LABS: INR-International Normal Ratio 1.3
[2022-03-16 11:44] LABS: PTT 36.8 sec (22.9-36.1)
[2022-03-16 13:41] VITALS: BP 98/38; TEMP 98
== END 2022-03-16 11:45 | disposition home or self-care (01) ==
LOC: ULT 09:11
PROVIDERS: ATTEND Internal Medicine Gastroenterology
PROC: 0W9G3ZZ Drainage of Peritoneal Cavity, Percutaneous Approach (ICD-10-PCS; principal; 2022-03-16)
DX: K74.60 Unspecified cirrhosis of liver (principal); R18.8 Other ascites; Z79.890 Hormone replacement therapy; Z79.899 Other long term (current) drug therapy; Z88.6 Allergy status to analgesic agent
CPT/HCPCS: 49083; 85025; 85610; 85730; P9047

== ENCOUNTER 2022-03-30 11:17 | Day surgery (SDC) | payer BC ==
[2022-03-29 14:24] VITALS: BMI 32.3
[2022-03-30] MEDS ORDERED: Sodium Bicarbonate 2.5 MEQ/5 ML VIAL ONE (11:52)
[2022-03-30] MEDS ORDERED: Lidocaine 1% PF 5 ML VIAL ONE (11:52)
[2022-03-30] MEDS ORDERED: Albumin 25% 200 ML ONE (12:34)
[2022-03-30 13:29] VITALS: BP 98/54
[2022-03-30] MEDS ORDERED: Albumin 25% 25 GM/100 ML BOT IVPB SCH (13:45)
== END 2022-03-30 13:40 | disposition home or self-care (01) ==
LOC: ULT 11:17
PROVIDERS: ATTEND Internal Medicine Gastroenterology
PROC: 0W9G3ZZ Drainage of Peritoneal Cavity, Percutaneous Approach (ICD-10-PCS; principal; 2022-03-30)
PROC: BW40ZZZ Ultrasonography of Abdomen (ICD-10-PCS; principal; 2022-03-30)
DX: K74.60 Unspecified cirrhosis of liver (principal); R18.8 Other ascites; M19.90 Unspecified osteoarthritis, unspecified site; I10 Essential (primary) hypertension; E78.00 Pure hypercholesterolemia, unspecified; L40.50 Arthropathic psoriasis, unspecified; Z79.890 Hormone replacement therapy; Z79.899 Other long term (current) drug therapy; Z88.6 Allergy status to analgesic agent
CPT/HCPCS: 49083; P9047

== ENCOUNTER 2022-04-13 10:59 | Day surgery (SDC) | payer BC ==
[2022-04-11 15:16] VITALS: BMI 31.6
== END 2022-04-13 11:30 | disposition home or self-care (01) ==
LOC: ULT 10:59
PROVIDERS: ATTEND Internal Medicine Gastroenterology
DX: R18.8 Other ascites (principal)
CPT/HCPCS: 76705

== ENCOUNTER 2022-04-19 10:57 | Day surgery (SDC) | payer BC ==
[2022-04-19] MEDS ORDERED: Acetaminophen 500 MG TAB ONE (11:37)
[2022-04-19 14:56] VITALS: BP 97/46; TEMP 98.2
== END 2022-04-19 14:56 | disposition home or self-care (01) ==
LOC: ONC/OP 10:57
PROVIDERS: ATTEND Internal Medicine Gastroenterology
PROC: 30233N1 Transfusion of Nonautologous Red Blood Cells into Peripheral Vein, Percutaneous Approach (ICD-10-PCS; principal; 2022-04-19)
DX: D64.9 Anemia, unspecified (principal); Z88.6 Allergy status to analgesic agent
CPT/HCPCS: 36430; 86850; 86900; 86901; P9016

== ENCOUNTER 2022-04-20 10:26 | Day surgery (SDC) | payer BC ==
[2022-04-20] MEDS ORDERED: Albumin 25% 200 ML ONE (10:53)
== END 2022-04-20 12:15 | disposition home or self-care (01) ==
LOC: ULT 10:26
PROVIDERS: ATTEND Internal Medicine Gastroenterology
PROC: 0W9G3ZZ Drainage of Peritoneal Cavity, Percutaneous Approach (ICD-10-PCS; principal; 2022-04-20)
DX: K74.60 Unspecified cirrhosis of liver (principal); R18.8 Other ascites; M19.90 Unspecified osteoarthritis, unspecified site; I10 Essential (primary) hypertension; E78.00 Pure hypercholesterolemia, unspecified; L40.50 Arthropathic psoriasis, unspecified; Z79.899 Other long term (current) drug therapy; Z88.6 Allergy status to analgesic agent
CPT/HCPCS: 49083; P9047

== ENCOUNTER 2022-05-04 12:47 | Day surgery (SDC) | payer BC ==
[2022-05-04] MEDS ORDERED: Sodium Bicarbonate 2.5 MEQ/5 ML VIAL ONE (12:59)
[2022-05-04] MEDS ORDERED: Lidocaine 1% PF 5 ML VIAL ONE (12:59)
[2022-05-04] MEDS ORDERED: Albumin 25% 0 ML ONE (13:00)
[2022-05-04 13:49] VITALS: BP 92/34; TEMP 98.2
== END 2022-05-04 13:24 | disposition home or self-care (01) ==
LOC: ULT 12:47
PROVIDERS: ATTEND Internal Medicine Gastroenterology
DX: R18.8 Other ascites (principal); Z79.890 Hormone replacement therapy; Z79.899 Other long term (current) drug therapy; Z88.6 Allergy status to analgesic agent
CPT/HCPCS: 76705; 90471; 90732; G0009; P9047

== ENCOUNTER 2022-05-08 08:05 | Outpatient (CLI) | payer BC | END 2022-05-08 08:06 | disposition home or self-care (01) | LOC: ULT 08:05 | PROVIDERS: ATTEND Nurse Practitioner | DX: K74.69 Other cirrhosis of liver (principal); R18.8 Other ascites; R16.1 Splenomegaly, not elsewhere classified; Z95.828 Presence of other vascular implants and grafts | CPT/HCPCS: 76705 ==

== ENCOUNTER → 2022-06-08 | Day surgery (SDC) | payer BC ==
[2022-06-08 08:33] LABS: INR-International Normal Ratio 1.3; Prothrombin Time 16.5 sec (12.0-14.7)
== END | disposition home or self-care (01) ==
LOC: ULT 10:59
PROVIDERS: ATTEND Internal Medicine Gastroenterology
DX: R18.8 Other ascites (principal); Z88.6 Allergy status to analgesic agent
CPT/HCPCS: 36415; 76705; 85610; 85730

== ENCOUNTER 2022-06-29 08:36 | Day surgery (SDC) | payer BC ==
[2022-06-29] MEDS ORDERED: Acetaminophen 325 MG TAB PO SCH (09:30)
[2022-06-29] MEDS ORDERED: Acetaminophen 325 MG TAB ONE ×2 (09:44)
[2022-06-29 15:58] VITALS: BP 113/57; TEMP 98.1
== END 2022-06-29 15:58 | disposition home or self-care (01) ==
LOC: ONC/OP 08:36
PROVIDERS: ATTEND Physician Assistant Medical
PROC: 30233N1 Transfusion of Nonautologous Red Blood Cells into Peripheral Vein, Percutaneous Approach (ICD-10-PCS; principal; 2022-06-29)
DX: D64.9 Anemia, unspecified (principal); Z88.6 Allergy status to analgesic agent
CPT/HCPCS: 36430; 86850; 86900; 86901; P9016

== ENCOUNTER 2022-08-03 09:31 | Day surgery (SDC) | payer BC ==
[2022-08-01 11:59] VITALS: BMI 25.0
[2022-08-03] MEDS ORDERED: PROPOFOL 200 MG/20 ML VIAL ONE (11:15)
== END 2022-08-03 12:15 | disposition home or self-care (01) ==
LOC: SDC 09:31
PROVIDERS: ATTEND Internal Medicine Gastroenterology
PROC: 0DB78ZX Excision of Stomach, Pylorus, Via Natural or Artificial Opening Endoscopic, Diagnostic (ICD-10-PCS; principal; 2022-08-03)
DX: K31.89 Other diseases of stomach and duodenum (principal); K31.819 Angiodysplasia of stomach and duodenum without bleeding; K44.9 Diaphragmatic hernia without obstruction or gangrene; K74.60 Unspecified cirrhosis of liver; Z79.890 Hormone replacement therapy; Z79.899 Other long term (current) drug therapy; Z88.6 Allergy status to analgesic agent
CPT/HCPCS: 88305; J2704

== ENCOUNTER 2022-09-13 09:40 | Day surgery (SDC) | payer SELFPAY ==
[2022-09-13] MEDS ORDERED: Acetaminophen 500 MG TAB PO SCH (09:45)
[2022-09-13] MEDS ORDERED: diphenhydrAMINE 25 MG CAP PO SCH (09:45)
[2022-09-13] MEDS ORDERED: Acetaminophen 500 MG TAB ONE (10:48)
[2022-09-13] MEDS ORDERED: diphenhydrAMINE 25 MG CAP ONE (10:48)
[2022-09-13 16:42] VITALS: BP 116/55; TEMP 98
[2022-09-13 18:05] LABS: Hemoglobin 8.3 g/dL (12.0-16.0); Mean Corpuscular HGB CONC 30.5 g/dL (32.0-36.0); Mean Corpuscular Hemoglobin 23.8 pg (27.0-31.0); Mean Corpuscular Volume 78.2 fl (78.0-98.0); Mean Platelet Volume 9.5 fL (7.4-10.4); Platelet Count 91 10x3/uL (130-400); RBC Distribution Width 16.3 % (11.5-14.5); Red Blood Cell (RBC) Count 3.47 mill/uL (4.20-5.40); White Blood Cell (WBC) Count 2.7 10x3/uL (4.8-10.8)
[2022-09-13 19:11] LABS: #Eosinphils 0.1 thou/uL (0.0-0.7); #Lymphocytes 0.6 thou/uL (1.20-3.40); #Monocytes 0.4 thou/uL (0.11-0.59); #Neutrophils 1.8 thou/uL (1.40-6.50); %Eosinophils 2.2 % (0.0-10.0); %Lymphocytes 20.1 % (21.0-51.0); %Monocytes 13.6 % (0.0-10.0); %Neutrophils 64.2 % (42.0-75.0); Anisocytosis SLIGHT = 6-15 cells (100X) (0-5/hpf); Band 1 % (5-11); Eosinophils 7 % (0-10); Hypochromia SLIGHT = 6-15 cells (100X) (0-5/hpf); Lymphocytes 21 % (21-51); MDiff Complete? YES; Monocytes 10 % (0-10); Neutrophil 60 % (42-75); Ovalocytes SLIGHT = 2-5 cells (100X) (0-1/hpf); Platelet Morphology Comment Appears Decreased; Polychromasia SLIGHT = 2-3 cells (100X) (0-2/hpf); Schistocytes SLIGHT = 2-5 cells (100X) (0-1/hpf)
== END 2022-09-13 17:24 | disposition home or self-care (01) ==
LOC: ONC/OP 09:40
PROVIDERS: ATTEND Internal Medicine
PROC: 30233N1 Transfusion of Nonautologous Red Blood Cells into Peripheral Vein, Percutaneous Approach (ICD-10-PCS; principal; 2022-09-13)
DX: D64.9 Anemia, unspecified (principal); D69.6 Thrombocytopenia, unspecified; Z88.6 Allergy status to analgesic agent
CPT/HCPCS: 36430; 85025; 86850; 86900; 86901; P9016

== ENCOUNTER → 2022-10-12 | Day surgery (SDC) | payer SELFPAY | END | disposition home or self-care (01) | LOC: ULT 10:52 | PROVIDERS: ATTEND Internal Medicine Gastroenterology | DX: K74.60 Unspecified cirrhosis of liver (principal); R18.8 Other ascites; K76.82 Hepatic encephalopathy; D50.9 Iron deficiency anemia, unspecified; R16.1 Splenomegaly, not elsewhere classified; Z88.6 Allergy status to analgesic agent | CPT/HCPCS: 76705 ==